=== PATIENT | female | born 1995 | race Caucasian/White ===

== ENCOUNTER 2016-06-17 15:02 | Emergency (ER) | payer OTHER ==
[2016-06-17 15:15] VITALS: BP 123/55
--- NOTE | 2016-06-17 15:38 | UC ---
Complaint Female HPI - HPI Summary HPI Summary: Pt presents with her significant other and young child. Pt is requesting an test. LMP was 05/16/16 and is now reporting that she has food cravings that are similar to when she was . Pt is not currently using any form control and is sexually active. - History Of Current Complaint Chief Complaint: UCGeneralIllness Stated Complaint: NEEDS PREG TEST Time Seen by Provider: 06/17/16 15:22 Hx Obtained From: Patient Hx Last Menstrual Period: 05/16/16 Character: Not Applicable Aggravating Factor(s): Nothing Associated Signs And Symptoms: Positive: Negative - Allergies/Home Medications Allergies/Adverse Reactions: Allergies Allergy/AdvReac Type Severity Reaction Status Date / Time Citalopram [From Celexa] Allergy Severe hives, mean Verified 06/17/16 15:15 Amoxicillin [From Augmentin] Allergy Intermediate Hives Verified 06/17/16 15:15 Clavulanic Acid Allergy Intermediate Hives Verified 06/17/16 15:15 [From Augmentin] Ibuprofen Allergy Intermediate Abdominal Verified 06/17/16 15:15 Pain NSAIDs Allergy Intermediate Hives Verified 06/17/16 15:15 Prochlorperazine Allergy Intermediate Hives Verified 06/17/16 15:15 [From Compazine] Home Medications: Home Medications Lisdexamfetamine(NF) [Vyvanse(NF)] 40 mg PO DAILY 06/17/16 [History Confirmed ] PMH/Surg Hx/FS Hx/Imm Hx Previously Healthy: Yes Endocrine History Of: Denies: Diabetes, Thyroid Disease, Hyperthyroidism, Hypothyroidism, Dyslipidemia Cardiovascular History Of: Denies: Cardiac Disorders, Hypertension, Pacemaker/ICD, Myocardial Infarction , Congestive Heart Failure, Atrial Fibrillation, Deep Vein Thrombosis, Bleeding Disorders Respiratory History Of: Reports: Asthma Denies: COPD, Bronchitis, Pneumonia, Pulmonary Embolism GI/ History Of: Reports: Gastroesophageal Reflux - She will take omeprazole. It is presently diet controlled. Denies: Ulcer, Gastrointestinal Bleed, Gall Bladder Disease, Kidney Stones, Diverticulitis, Renal Disease, Urosepsis Neurological History Of: Denies: TIA, CVA, Dementia, Seizures, Migraine Psychological History Of: Denies: Anxiety, Depression, Bipolar Disorder, Schizophrenia, Post Traumatic Stress Disorder Cancer History Of: Denies: Lung Cancer, Colorectal Cancer, Breast Cancer, Prostate Cancer, Cervical Cancer Other History Of: Negative For: HIV, Hepatitis B, Hepatitis C - Surgical History Surgical History: Yes Surgery Procedure, Year, and Place: T&A, bilateral ear surgery. - Family History Known Family History: Positive: Cardiac Disease, Hypertension - Social History Lives: With Family Alcohol Use: None Substance Use Type: None Smoking Status (MU): Never Smoked Tobacco - Immunization History Most Recent Influenza Vaccination: 0380-2978 Vaccination Up to Date: Yes Review of Systems Constitutional: Negative Skin: Negative Eyes: Negative ENT: Negative Respiratory: Negative Cardiovascular: Negative Gastrointestinal: Negative Genitourinary: Negative Motor: Negative Neurovascular: Negative Musculoskeletal: Negative Neurological: Negative Psychological: Negative All Other Systems Reviewed And Are Negative: Yes Physical Exam Triage Information Reviewed: Yes Appearance: Well-Appearing Vital Signs: Initial Vital Signs Temp 97.9 F 06/17/16 15:09 Pulse 78 06/17/16 15:09 Resp 18 06/17/16 15:09 BP 123/55 06/17/16 15:09 Pulse Ox 98 06/17/16 15:09 Vital Signs Reviewed: Yes Dental Exam: Normal Respiratory: Positive: No respiratory distress Musculoskeletal Exam: Normal Neurological Exam: Normal Psychological Exam: Normal Skin Exam: Normal Complaint Female Dx - Differential Dx/Diagnosis Differential Diagnosis/HQI/PQRI: Other - amenorrhea PICA Provider Diagnoses: normal exam. negative test Discharge - Discharge Plan Condition: Stable Disposition: HOME Patient Education Materials: Intrauterine Device (GEN), Normal Exam (ED) Referrals: Michael Osullivan MD [Primary Care Provider] - Additional Instructions: The test you have requested today gave a negative result. You should follow up with your PCP for further discussion for prevention/management. in your exam today we discussed many options including and IUD. I have provided more information regarding an IUD in your discharge instructions.
== END 2016-06-17 15:47 | disposition home or self-care (01) ==
LOC: UCCORT 15:02
DX: Z32.02 Encounter for pregnancy test, result negative (principal); Z88.1 Allergy status to other antibiotic agents; Z88.6 Allergy status to analgesic agent; Z88.0 Allergy status to penicillin
CPT/HCPCS: 81025; 99211; G0463

== ENCOUNTER 2017-02-07 17:51 | Emergency (ER) | payer OTHER ==
[2017-02-07 18:45] VITALS: BP 115/54
--- NOTE | 2017-02-07 18:57 | UC ---
Hand/Wrist HPI - HPI Summary HPI Summary: Pt presents with c/o of right thumb pain. Pt reports that she was picking up her young child and reports that right thumb base, lateral aspect, "popped" and has now been tender with movement . Pt is 22 weeks - History Of Current Complaint Stated Complaint: RIGHT THUMB PAIN Time Seen by Provider: 02/07/17 18:34 Hx Obtained From: Patient Hx Last Menstrual Period: 05/16/16 ?: Yes Onset/Duration: Sudden Onset, Lasting Days, Still Present Severity Initially: Mild Severity Currently: Mild Character Of Pain: Dull, Aching Aggravating Factor(s): Movement Alleviating: Rest Associated Signs And Symptoms: Positive: Negative - Allergies/Home Medications Allergies/Adverse Reactions: Allergies Allergy/AdvReac Type Severity Reaction Status Date / Time Citalopram [From Celexa] Allergy Severe hives, mean Verified 02/07/17 18:46 Amoxicillin [From Augmentin] Allergy Intermediate Hives Verified 02/07/17 18:46 Clavulanic Acid Allergy Intermediate Hives Verified 02/07/17 18:46 [From Augmentin] Ibuprofen Allergy Intermediate Abdominal Verified 02/07/17 18:46 Pain NSAIDs Allergy Intermediate Hives Verified 02/07/17 18:46 Prochlorperazine Allergy Intermediate Hives Verified 02/07/17 18:46 [From Compazine] Home Medications: Home Medications Vit W/ Docusate-Fe Fu [ 19] 1 tab PO DAILY 02/07/17 [History Confirmed 02/07/17] PMH/Surg Hx/FS Hx/Imm Hx Previously Healthy: Yes Other History Of: Negative For: HIV, Hepatitis B, Hepatitis C - Surgical History Surgical History: Yes Surgery Procedure, Year, and Place: T&A, bilateral ear surgery. x1 - Family History Known Family History: Positive: Cardiac Disease, Hypertension - Social History Occupation: Employed Full-time Lives: With Family Alcohol Use: None Substance Use Type: None Smoking Status (MU): Never Smoked Tobacco Have You Smoked in the Last Year: No - Immunization History Most Recent Influenza Vaccination: [id number] Vaccination Up to Date: Yes Review of Systems Constitutional: Negative Skin: Negative Eyes: Negative ENT: Negative Respiratory: Negative Cardiovascular: Negative Gastrointestinal: Negative Genitourinary: Negative Motor: Other - pain wiht ROM right thumb Neurovascular: Negative Musculoskeletal: Myalgia - right thumb Neurological: Negative Psychological: Negative All Other Systems Reviewed And Are Negative: Yes Physical Exam Triage Information Reviewed: Yes Appearance: Well-Appearing Vital Signs: Initial Vital Signs Temp 98.2 F 02/07/17 18:42 Pulse 73 02/07/17 18:42 Resp 14 02/07/17 18:42 BP 115/54 02/07/17 18:42 Pulse Ox 99 02/07/17 18:42 Vital Signs Reviewed: Yes Eye Exam: Normal ENT Exam: Normal Neck exam: Normal Respiratory Exam: Normal Cardiovascular Exam: Normal Musculoskeletal Exam: Normal Neurological Exam: Normal, Other - c/o tenderness with ROM right thumb Psychological Exam: Normal Skin Exam: Normal Hand/Wrist Course/Dx - Differential Dx/Diagnosis Differential Diagnosis/HQI/PQRI: Fracture, Sprain Provider Diagnoses: right thumb sprain Discharge - Discharge Plan Condition: Stable Disposition: HOME Patient Education Materials: Finger Sprain (ED) Referrals: Michael Osullivan MD [Primary Care Provider] - If Needed Additional Instructions: Please follow up with your PCP or return to clinic. Joe grubbs provided a referral to an orthopedic provider if your symptoms do not improve or worsen.
== END 2017-02-07 19:14 | disposition home or self-care (01) ==
LOC: UCCORT 17:51
DX: S63.601A Unspecified sprain of right thumb, initial encounter (principal); Z88.6 Allergy status to analgesic agent; Z88.3 Allergy status to other anti-infective agents; X50.9XXA Other and unspecified overexertion or strenuous movements or postures, initial encounter; Z3A.22 22 weeks gestation of pregnancy
CPT/HCPCS: 99211; G0463

== ENCOUNTER 2018-05-26 13:32 | Emergency (ER) | payer OTHER ==
--- OUTSIDE RECORDS SUMMARY | 2018-05-26 13:39 | XMS REPORT | Continuity of Care Document ---
:1995 External Reference #:[id number] Author Name Grisel Esquivel NP Address [address] [place] [address] Care Team Providers Name Role Phone Freddie Esquivel MD Care Team Information Internet Network Specialist Unavailable Payers Type Date Identification Numbers Payment Provider Subscriber Effective: 2014 Policy Number: [id number] [facility] [employer]ma [employer] Group Name: [id number] [address] PayID: [id number] [place] [address] Advance Directives Description No Information Available Problems Description No Information Family History Date Family Member(s) Problem(s) Comments Father Unknown First Son Good Health First Brother ADHD First Brother Bipolar Disorder Social History Type Date Description Comments Sex Unknown Tobacco Use Start: Unknown Never Smoked Cigarettes ETOH Use Denies alcohol use Tobacco Use Start: Unknown Patient has never smoked Recreational Drug Use Denies Drug Use Allergies, Adverse Reactions, Alerts Date Description Reaction Status Severity Comments 11/27/2016 Augmentin Active 11/27/2016 Compazine Active 11/27/2016 Bactrim Active 11/27/2016 Celexa Active 11/27/2016 Naproxen Active Medications Medication Date Status Form Strength Qnty SIG Indications Ordering Provider Calcium Carbonate 05/16 Active Chewtabs 500mg 60uni as Edin, Antacid ts directed MELINDA Recinos Cetirizine HCL 02/09 Active Chewtabs 10mg 30uni 1 po qd stanford Frazier MD Hydrocortisone 02/09 Active Cream 2.5% 20gm apply twice a MD Freddie day to affected areas Nasal 01/31 Active Tablets 30mg 120ta 2 every 6 , Decongestant bs hours MELINDA Recinos Acetaminophen 01/31 Active Solution 160mg/5ML 500ml 30ml every 4 hours as Grisel, needed [employer] Patient Is 01/24 Active elías- Sierra, 9 MELINDA Recinos Ondansetron HCL 01/24 Active Tablets 4mg 60tab 1-2 every s 12 hours Grisel, as needed [employer] Adult 01/12 Active Chewtabs 0.4-25mg 90uni 1 by mouth Sierra , Gummy/Dha/Folic ts every day Grisel, Acid patient [employer] would prefer gummies No Active 01/12 Hx Unknown Medications /2017 - 01/12 Fluconazole 12/13 Hx Tablets 150mg 2tabs 1 by mouth October repeat Grisel, - after 2 [employer] 01/12 days still symptomati c Cetirizine HCL 12/03 Hx Tablets 10mg 30tab 1 by mouth s at bedtime Grisel, - [employer] 01/12 Amphetamine-Dextr 11/26 Hx Caps ER 10mg 30cap 1 tab by F90.9 Sierra, oahet 24HR s mouth in Grisel, - the in the [employer] 11/26 Amphetamine-Dextr 11/26 Hx Caps ER 10mg 30cap 1 by mouth F90.9 Sierra, oamphet 24HR s every day Grisel, - [employer] 11/26 Amphetamine-Dextr 11/26 Hx Tablets 10mg 30tab 1 by mouth F90.9 Sierra, oamphetamine /2017 s every day Grisel, - [employer] 01/12 Amphetamine-Dextr 11/02 Hx Tablets 15mg 30tab 1 by mouth F90.9 Sierra oahetamine /2017 s every Grisel, - morning [employer] 11/26 Physical Therapy 10/13 Hx Misc evaluate S33.5xxA and treat MD Freddie - dx; low 01/12 back pain Omeprazole 10/[address] 40mg 30cap 1 by mouth K21.0 s every day MD Freddie - in the 01/12 evening Methylprednisolon 09/28 Hx TBPK 4mg 1Pack as S33.5xxA Jarrett, directed MD Freddie - 01/12 Cyclobenzaprine 09/28 Hx Tablets 5mg 45tab 1-2 by S33.5xxA Jarrett, HCL s mouth MD Freddie - every 8 08/08 hours as needed Azithromycin 09/13 Hx Tablets 250mg 6tabs 2 by mouth J02.9 Sierra, every day MD Freddie - x 1 day 01/12 then 1 by mouth every day x 4 days Amphetamine-Dextr 08/23 Hx Caps ER 10mg 30cap 1 tab by F90.9 Sierra, oamphet ER /2017 24HR s mouth in Grisel, - the in the [employer] 08/23 morning Amphetamine-Dextr 08/23 Hx Tablets 10mg 30tab 1 by mouth F90.9 Sierra, oamphetamine /2017 s every day Grisel, - [employer] 11/02 Phenazopyridine 08/20 Hx Tablets 200mg 9tabs 1 by mouth Sierra, HCL three Grisel, - times a [employer] Nitrofurantoin 08/20 Hx Capsules 100mg 14cap 1 by mouth Sierra Macrocrystal s twice a Grisel, - day [employer] 08/30 Vyvanse 08/20 Hx Capsules 10mg 14cap 1 by mouth F90.9 Sierra, s every day Grisel, - [employer] 08/23 Medroxyprogestero 07/07 Hx Suspension 150mg/ml 4Syri inject 1ml Sierra, ne Acetate nges intramuscu Grisel, - larly [employer] 01/12 every weeks--ple ase schedule appointmen t Ventolin HFA 07/06 Hx Aerosol 108(90Bas 2unit 2 puffs e) s every 4 Grisel, - mcg/Act hrs/prn [employer] 01/12 cough or wheezing Goodsense Cough 07/06 Hx Suer 30mg/5ML 148ml 10ml every J00 Sierra, DM 12hours Grisel, - [employer] 01/12 Fluoxetine HCL 06/30 Hx Capsules 20mg 30cap 1 by mouth F41.9 Sierra, (PMDD) s every day Grisel, - [employer] 07/13 Breast Pump 06/17 Hx Misc 1unit Electric Jarrett, s breast Grisel, - pump. Use [employer] 01/12 directed. Pt is returning to school. Nasal 05/06 Hx Tablets 30mg 60tab 2 tabs Sierra Decongestant s every 6 Grisel, - hours as [employer] 01/12 needed Acetaminophen 05/06 Hx Tablets 325mg 90tab 2 by mouth s every 6 Grisel, - hours as [employer] 01/12 needed Amoxicillin 04/22 Hx Tablets 500mg 20tab 1 by mouth s twice a Grisel, - day [employer] 05/06 Dexamethasone 04/22 Hx Solution 0.1% 5ml wick into [facility], Sodium ear drum Grisel, - using a [employer] 01/12 cottonball every 12 hours until symptom relief Lidocaine HCL 02/25 Hx Gel 2% 30ml apply to M25.511 affected Grisel, - area twice [employer] 01/12 a day Ondansetron 12/07 Hx Tablets 4mg 30tab 1 by mouth Dispers s every Grisel, - 12hours [employer] 01/12 Hydrocortisone 11/27 Hx Ointment 2.5% 28.35 apply to 0gm affected Grisel, - areas [employer] 01/12 twice a day Vitamins 11/27 Hx Tablets 28-0.8mg 30tab 1 by mouth s every day Grisel, - [employer] 01/12 Earwax Treatment 11/27 Hx Solution 6.5% 15ml 5-10 drops H61.23 Drops twice a Grisel, - day x 4 [employer] 01/12 days Fluticasone 11/18 Hx Suspension 50mcg/Act 1unit 2 sprays J30.1 s each nare Grisel, - every day [employer] 04/13 Escitalopram 00/ Hx Tablets 10mg 1 by mouth Unknown Oxalate /0000 every day - 06/30 Medications Administered in Office Medication Date Status Form Strength Qnty SIG Indications Ordering Provider Depo Medrol 80 Administered Injection MG Kalin Esquivel NP Immunizations CPT Code Status Date Vaccine Lot # [id number] Given 07/08/2015 Afluria Or Fluvirin Flu Vac Intramuscular 24074 Given 1995 Hepatitis B Vac Ped/Adolescent 3 Dose Schedule 35026 Refused 04/06/2018 Influenza Vac, 3 Yrs & Older, Quadrivalent, [place] Use [address] Refused 06/29/2017 Afluria Or Fluvirin Flu Vac Intramuscular Vital Signs Date Vital Result Comment 05/16/2018 11:48am Body Temperature 96.9 F Weight 196.00 lb Heart Rate 67 /min regular BP Systolic 122 mmHg BP Diastolic 60 mmHg Respiratory Rate 17 /min Height 65 inches 5'5" O2 % BldC Oximetry 98 % BMI (Body Mass Index) 32.6 kg/m2 04/06/2018 3:35pm Body Temperature 97.6 F Weight 188.00 lb Heart Rate 66 /min Respiratory Rate 17 /min Height 65 inches 5'5" BMI (Body Mass Index) 31.3 kg/m2 02/18/2018 12:14pm Body Temperature 97.8 F Weight 189.00 lb Heart Rate 78 /min BP Systolic 128 mmHg BP Diastolic 74 mmHg Respiratory Rate 17 /min Height 68 inches 5'8" BMI (Body Mass Index) 28.7 kg/m2 02/09/2018 12:35pm Body Temperature 98.0 F Weight 189.00 lb Heart Rate 63 /min BP Systolic 124 mmHg BP Diastolic 70 mmHg Respiratory Rate 17 /min O2 % BldC Oximetry 99 % 01/31/2018 4:31pm Body Temperature 99.5 F Weight 185.00 lb 01/24/2018 12:56pm Weight 189.00 lb BP Systolic 99 mmHg BP Diastolic 70 mmHg 01/12/2018 2:15pm Weight 188.00 lb BP Systolic 124 mmHg BP Diastolic 78 mmHg 12/10/2017 2:37pm Body Temperature 98.4 F Weight 186.00 lb BP Systolic 114 mmHg BP Diastolic 78 mmHg Height 98.05 inches 8'2.05" BMI (Body Mass Index) 13.6 kg/m2 Urine Dipstick - Blood NEGATIVE Urine Dipstick - Protein NEGATIVE Urine Dipstick - Glucose NEGATIVE Urine Dipstick - Leukocytes NEGATIVE 11/26/2017 2:35pm Weight 190.00 lb BP Systolic 120 mmHg BP Diastolic 80 mmHg Height 98.05 inches 8'2.05" BMI (Body Mass Index) 13.9 kg/m2 10/13/2017 12:21pm Weight 187.00 lb BP Systolic 122 mmHg BP Diastolic 74 mmHg Height 98.05 inches 8'2.05" BMI (Body Mass Index) 13.7 kg/m2 10/08/2017 2:55pm Weight 188.00 lb BP Systolic 120 mmHg BP Diastolic 68 mmHg Height 98.05 inches 8'2.05" BMI (Body Mass Index) 13.7 kg/m2 10/08/2017 2:40pm Weight 186.00 lb BP Systolic 98 mmHg BP Diastolic 60 mmHg Height 98.05 inches 8'2.05" BMI (Body Mass Index) 13.6 kg/m2 09/28/2017 9:31am Weight 186.00 lb BP Systolic 100 mmHg BP Diastolic 60 mmHg Height 98.05 inches 8'2.05" BMI (Body Mass Index) 13.6 kg/m2 09/20/2017 11:50am Body Temperature 97.8 F Weight 186.00 lb BP Systolic 110 mmHg BP Diastolic 62 mmHg Height 98.05 inches 8'2.05" BMI (Body Mass Index) 13.6 kg/m2 Urine Dipstick - Blood 3+ Urine Dipstick - Protein NEGATIVE Urine Dipstick - Glucose NEGATIVE Urine Dipstick - Leukocytes 309/13/2017 12:02pm Body Temperature 98.0 F Weight 185.00 lb BP Systolic 118 mmHg BP Diastolic 70 mmHg Height 98.05 inches 8'2.05" BMI (Body Mass Index) 13.5 kg/m2 08/30/2017 12:16pm Weight 184.00 lb BP Systolic 124 mmHg BP Diastolic 78 mmHg Height 62.25 inches 5'2.25" BMI (Body Mass Index) 33.4 kg/m2 08/20/2017 2:26pm Body Temperature 98.4 F Weight 184.00 lb BP Systolic 102 mmHg BP Diastolic 60 mmHg Height 62.25 inches 5'2.25" BMI (Body Mass Index) 33.4 kg/m2 Urine Dipstick - Blood 3+ Urine Dipstick - Protein NEGATIVE Urine Dipstick - Glucose NEGATIVE Urine Dipstick - Leukocytes 307/13/2017 3:06pm Weight 197.00 lb BP Systolic 122 mmHg BP Diastolic 74 mmHg Height 62.25 inches 5'2.25" BMI (Body Mass Index) 35.7 kg/m2 07/07/2017 2:52pm Weight 200.00 lb BP Systolic 124 mmHg BP Diastolic 74 mmHg Height 62.25 inches 5'2.25" BMI (Body Mass Index) 36.3 kg/m2 07/06/2017 11:39am Body Temperature 97.4 F Weight 198.00 lb BP Systolic 120 mmHg BP Diastolic 72 mmHg Height 62.25 inches 5'2.25" BMI (Body Mass Index) 35.9 kg/m2 06/30/2017 2:00pm Body Temperature 96.7 F Weight 197.00 lb BP Systolic 110 mmHg BP Diastolic 68 mmHg Height 65.25 inches 5'5.25" BMI (Body Mass Index) 32.5 kg/m2 05/06/2017 11:17am Weight 227.00 lb BP Systolic 124 mmHg BP Diastolic 86 mmHg Height 65.25 inches 5'5.25" BMI (Body Mass Index) 37.5 kg/m2 04/22/2017 2:20pm Weight 227.00 lb BP Systolic 118 mmHg BP Diastolic 74 mmHg Height 65.25 inches 5'5.25" BMI (Body Mass Index) 37.5 kg/m2 04/13/2017 10:40am Weight 224.00 lb BP Systolic 110 mmHg BP Diastolic 74 mmHg Height 65.25 inches 5'5.25" BMI (Body Mass Index) 37.0 kg/m2 02/25/2017 11:39am Weight 214.00 lb BP Systolic 120 mmHg BP Diastolic 82 mmHg Height 65.25 inches 5'5.25" BMI (Body Mass Index) 35.3 kg/m2 01/14/2017 3:58pm Weight 211.00 lb BP Systolic 120 mmHg BP Diastolic 78 mmHg Height 65.25 inches 5'5.25" BMI (Body Mass Index) 34.8 kg/m2 12/07/2016 10:11am Weight 207.00 lb BP Systolic 114 mmHg BP Diastolic 70 mmHg Height 65.25 inches 5'5.25" BMI (Body Mass Index) 34.2 kg/m2 11/27/2016 2:39pm Weight 208.00 lb Heart Rate 60 /min BP Systolic 124 mmHg BP Diastolic 76 mmHg Height 65.25 inches 5'5.25" BMI (Body Mass Index) 34.3 kg/m2 Urine Dipstick - Blood NEGATIVE Urine Dipstick - Protein TRACE Urine Dipstick - Glucose NEGATIVE Urine Dipstick - Leukocytes 3+ Right Visual Acuity Distance 20/20 Left Visual Acuity Distance 20/25 11/18/2016 11:28am Weight 210.00 lb BP Systolic 102 mmHg BP Diastolic 60 mmHg BP Systolic Recheck 98 mmHg p58 BP Diastolic Recheck 50 mmHg p58 BP Systolic Lying Down 110 mmHg p64 BP Diastolic Lying Down 72 mmHg p64 BP Systolic Sitting 108 mmHg p80 BP Diastolic Sitting 72 mmHg p80 Height 67.0 inches 5'7" BMI (Body Mass Index) 32.9 kg/m2 Glucose Meter 86 fasting Results Test Date Facility Test Result H/L Range Note Laboratory test [facility] Throat Culture Microbiology res 1 finding 8 <SEE NOTE> Laboratory test [facility] HCG,Quant Preg 1968 mU/mL 2 finding 8 Laboratory test [facility] Glucose 91 mg/dL 70-105 finding 8 Affirm [facility] Trichomonas Negative Negative 8 Vaginalis Gardnerella Vaginalis Negative Negative Lyn Species Positive Abnormal Negative Laboratory test 09/20/2017 [facility] Urine Culture Microbiology res 3, 4 finding <SEE NOTE> Laboratory test 09/13/2017 [facility] Throat Culture Microbiology res 5 finding <SEE NOTE> Laboratory test 08/20/2017 [facility] Urine Culture Microbiology res 6 finding <SEE NOTE> Laboratory test 07/06/2017 [facility] Throat Culture Microbiology res 7 finding <SEE NOTE> Laboratory test 05/06/2017 [facility] Throat Culture Microbiology res 8 finding <SEE NOTE> Hemoglobin A1c 04/09/2017 [facility] Hemoglobin A1c 5.0 % 4.1-5.9 9 Estimated Average Glucose Calc 97 71-140 Laboratory test 04/09/2017 [facility] Platelet Count 224 K/ul 140-400 finding Laboratory test 02/23/2017 [facility] Glucose Challenge 45 mg/dL (<140) 10 , 11 finding Test CBC With Auto Diff 02/23/2017 [facility] WBC 8.7 K/uL 4.1-11.0 RBC 4.06 M/uL 4.00-5.40 Hemoglobin 12.4 gm/dL 12.0-16.0 Hematocrit 36.9 % 36.0-47.0 MCV 91.0 fL 80.0-97.0 MCH 30.6 pg 27.0-32.0 MCHC 33.6 g/dL 32.0-36.0 RDW 14.2 % 11.5-14.5 PLT Count 208 K/ul 140-400 Neutrophil 68.8 % 35.0-75.0 Lymphocyte 27.0 % 16.0-52.0 Monocyte 3.7 % 2.0-10.0 Eosinophil 0.3 % 0.0-5.0 Basophil 0.2 % 0.0-4.0 Abs Neutrophils 6.0 K/uL 2.1-8.0 Abs Lymphocytes 2.3 K/uL 0.8-5.5 Abs Monocytes 0.3 K/uL 0.1-1.0 Abs Eosinophils 0.0 K/uL 0.0-0.5 Abs Basophils 0.0 K/uL 0.0-0.3 Laboratory test 02/23/2017 [place] Platelet Count 208 K/ul 140-400 finding HSV1/HSV2 Glyco G 12/14/2016 [facility] HSV1 Glyco G Igg @ POSITIVE (Neg) 12, 13 Igg-RL HSV2 Glyco G Igg @ POSITIVE (Neg) 14 Laboratory test finding 12/14/2016 [place] Glucose Challenge Test 79 mg/dL (<140) 15 Vit D,25 Hydroxy 34 ng/mL 31-100 TSH 1.00 uIU/mL 0.35-4.94 HIV Combo By 12/07/2016 [place] [facility] [employer] HIV Combo NON REACTIVE Non Reactive Eia Lipid 12/07/2016 [place] [facility] Cholesterol 158 mg/dL 50-199 Triglycerides 112 mg/dL 30-200 HDL 48 mg/dL 35-85 16 Chol/ HDL Ratio 3.3 ratio Low 3.7-5.6 VLDL 22 mg/dL 2-29 LDL (Calc) 88 mg/dL 20-99 17 Urinalysis 10/06/2016 [facility] General Color YELLOW Appearance CLEAR Spec Grav Urine 1.029 (1.003-1.030) PH Urine 6.0 (5.0-7.5) Leuk Esterase NEGATIVE (Neg) Nitrite Urine NEGATIVE (Neg) Protein Urine NEGATIVE (Neg) Glucose Urine NEGATIVE (Neg) Ketone Urine TRACE Abnormal (Neg) Urobilinogen 1.0 mg/dL (0-1.0) Bilirubin Urine NEGATIVE (Neg) Blood/HGB Urine NEGATIVE (Neg) Laboratory test 10/06/2016 [facility] General Type And SPEC EXP DATE 18 finding Screen <SEE NOTE> Poc Chem 8 10/06/2016 [facility] Poc Sodium 143 mmol/L (136-14 5) Poc Potassium 3.7 mmol/L (3.6-5.2) Poc Chloride 105 mmol/L (100-108) Poc Co2 25 mmol/L (22-31) Poc Anion Gap 13 mmol/L (7-16) Poc Ionized Calcium 1.24 mmol/L (1.16-1.32) 19 Poc Glu 84 mg/dL (70-99) Poc BUN 12 mg/dL (7-24) Poc Creatinine 0.7 mg/dL (0.6-1.0) 20 Poc HCT 43 % (38-47) Poc HGB 14.6 g/dL (12.0-16.0) Poc [facility] 10/06/2016 [facility] 917 IU/L High (<5 ) 21 Laboratory test 08/11/2016 [facility] Urine Culture SPECIMEN 22 finding DESCRIP <SEE NOTE> Urine Micro Only 08/11/2016 [facility] Urine WBC 3-5 [HPF] (0-5) Urine RBC 0-2 [HPF] (0-2) Epithelial Cells 3+ [HPF] Bacteria 3+ [HPF] Laboratory test finding 08/11/2016 [facility] Urine HCG NEGATIVE (Neg) Urinalysis 08/11/2016 [facility] Color YELLOW Appearance CLOUDY Spec Grav Urine 1.023 (1.003-1.030) PH Urine 6.0 (5.0-7.5) Leuk Esterase 1+ Abnormal (Neg) Nitrite Urine NEGATIVE (Neg) Protein Urine NEGATIVE (Neg) Glucose Urine NEGATIVE (Neg) Ketone Urine NEGATIVE (Neg) Urobilinogen 0.2 mg/dL (0-1.0) Bilirubin Urine NEGATIVE (Neg) Blood/HGB Urine NEGATIVE (Neg) 1 Microbiology results RESULT Normal throat juan jose.No beta hemolytic streptococci isolated. 2 INTERPRETATION: LESS THAN 6 NEGATIVE 6 - 10 BORDERLINE (SUGGEST REPEAT IN 48 HOURS) APPROX HCG RANGE WEEKS POST LMP 11 - 130 3 - 4 WEEKS 75 - 2600 4 - 5 WEEKS 850 - 44488 5 - 6 WEEKS 4000 - 144737 6 - 7 WEEKS 69686 - 820644 7 - 12 WEEKS 92792 - 849976 12 - 16 WEEKS 1400 - 90166 16 - 29 WEEKS 940 - 76773 29 - 41 WEEKS Unless otherwise specified, testing performed by [facility] [address] [place] [id number] 3 HIV COMBO TO BE PERFORMED AT [facility]. RESULTS TO FOLLOW 4 Microbiology results SOURCE Clean Catch Midstream FINAL RESULT No growth 5 Microbiology results RESULT Normal throat juan jose.No beta hemolytic streptococci isolated. 6 Microbiology results SOURCE Clean Catch Midstream FINAL RESULT Mixed urogenital juan jose consistent with contamination. Request fresh specimen if indicated. 7 Microbiology results RESULT Normal throat juan jose.No beta hemolytic streptococci isolated. 8 Microbiology results RESULT Normal throat juan jose.No beta hemolytic streptococci isolated. 9 Juliana Menezes MD PLEASE SEND COPY OF RESULTS TO: 10 Thank you! Juliana Menezes MD Please send copy of results to: This sample is drawn by:[facility] 11 LITERATURE SUGGESTS RESULTS <140 MG/DL IN A FEMALE RULE OUT GESTATIONAL DIABETES. PATIENTS WITH RESULTS > HH=546 MAY NEED A GLUCOSE TOLERANCE TEST FOLLOW UP. NO REFERENCE RANGE FOR NON- PATIENTS. Unless otherwise specified, testing [email or web address] [address] [address] Please send results to Dr Arzola 13 PLEASE NOTE: Individuals infected with HSV may not exhibit detectable IgG antibody to glycoprotein G in the early stages of infection and 5-10% of infections may occur with glycoprotein G deficient virus. Detection of antibody presence in these cases may only be possible using a non-type specific screening test. NOTE: HSV serology cannot be interpreted in infants less than 60 days old. NEW QUALITATIVE METHOD IN USE 02/10/12 14 PLEASE NOTE: Individuals infected with HSV may not exhibit detectable IgG antibody to glycoprotein G in the early stages of infection and 5-10% of infections may occur with glycoprotein G deficient virus. Detection of antibody presence in these cases may only be possible using a non-type specific screening test. NOTE: HSV serology cannot be interpreted in infants less than 60 days old. NEW QUALITATIVE METHOD IN USE 02/10/12 Unless otherwise specified, testing [email or web address] [address] 15 LITERATURE SUGGESTS RESULTS <140 MG/DL IN A FEMALE RULE OUT GESTATIONAL DIABETES. PATIENTS WITH RESULTS > OI=277 MAY NEED A GLUCOSE TOLERANCE TEST FOLLOW UP. NO REFERENCE RANGE FOR NON- PATIENTS. Unless otherwise specified, testing [email or web address] [address] 16 Per NCEP ATP III Guidelines: Results lower than 40 mg/dL are suggestive of increased risk for coronary artery disease. Results > or=to 60 mg/dL are considered a negative risk factor. 17 Per NCEP ATP III Guidelines: Normal Population <130 Patients with medical conditions: CHD/DM Optimal: <100 Borderline high: 130-159 High: 160-189 Very high: >189 18 SPEC EXP DATE 10/09/2016 PATIENT ABO/Rh O POSITIVE ANTIBODY SCREEN NEGATIVE TESTING SITE PERFORMED AT [place] [address] 19 RESULT IS NOT NORMALIZED TO 7.40 20 PERFORMED BY [facility] 21 LEVELS BETWEEN 5 AND 25 IU/L MAY INDICATE EARLY AND SHOULD BE REPEATED AFTER 48 HRS. PERFORMED BY [facility] 22 SPECIMEN DESCRIPTION MIDSTREAM URINE,CLEAN CATCH CULTURE RESULTS MIXED UROGENITAL JUAN JOSE; PLEASE SUBMIT A NEW SPEC IMEN IF CLINICALLY INDICATED. REPORT STATUS FINAL 08/12/2016 Procedures Date Code Description Status 11/26/2017 84974 Admin Of Inj (Therapeutic Phrophylactic Or Diagnostic Subq Completed Inj 07/06/2017 52436 Remove Impact Cerumen Irrigation/Lavage Completed 11/27/2016 26026 Screening Hearing Test Completed Encounters Type Date Location Provider Dx Diagnosis Office Visit 04/06/2018 Grisel Escoto, S60.551A Superficial foreign 3:15p [employer] body of RIGHT hand, initial encounter Z68.31 Body mass index (BMI) 31.0-31.9, adult Office Visit 02/18/2018 12:00p Grisel Escoto, MELINDA M79.672 Pain in LEFT foot O00.01 Abdominal with intrauterine N93.9 Abnormal uterine and vaginal bleeding, unspecified Z68.28 Body mass index (BMI) 28.0-28.9, adult Office Visit 02/09/2018 12:45p Freddie Escoto, S40.861A Insect bite MD (nonvenomous) of RIGHT upper arm, init encntr Office Visit 01/31/2018 4:15p Grisel Escoto, J02.9 Acute pharyngitis, [employer] unspecified Office Visit 01/24/2018 12:30p Grisel Escoto, O00.01 Abdominal [employer] with intrauterine E86.0 Dehydration Office Visit 01/12/2018 2:15p Grisel Escoto, O00.01 Abdominal [employer] with intrauterine Office Visit 12/10/2017 2:15p Grisel Escoto, N76.0 Acute vaginitis [employer] Z68.1 Body mass index (BMI) 19.9 or less, adult Office Visit 11/26/2017 2:45p Grisel Escoto NP L23.9 Allergic contact dermatitis, unspecified cause Z68.1 Body mass index (BMI) 19.9 or less, adult Office Visit 11/02/2017 2:45p Renetta Esquivel F90.9 Attention-deficit MELINDA Recinos hyperactivity disorder, unspecified type Office Visit 10/13/2017 12:30p Freddie Escoto, S33.5xxA Sprain of ligaments of MD lumbar spine, initial encounter Z68.1 Body mass index (BMI) 19.9 or less, adult Office Visit 10/08/2017 2:30p Freddie Escoto, K21.0 Gastro- esophageal reflux MD disease with esophagitis S33.5xxA Sprain of ligaments of lumbar spine, initial encounter Z68.1 Body mass index (BMI) 19.9 or less, adult Office Visit 09/28/2017 9:15a Freddie Escoto MD S33.5xxA Sprain of ligaments of lumbar spine, initial encounter F90.9 Attention-deficit hyperactivity disorder, unspecified type Z68.1 Body mass index (BMI) 19.9 or less, adult Office Visit 09/20/2017 12:15p Freddie Escoto MD R82.99 Other abnormal findings in urine J06.9 Acute upper respiratory infection, unspecified Office Visit 09/13/2017 11:45a Freddie Escoto MD J02.9 Acute pharyngitis, unspecified Z68.1 Body mass index (BMI) 19.9 or less, adult Office Visit 08/30/2017 12:00p Grisel Escoto NP L23.9 Allergic contact dermatitis, unspecified cause Office Visit 08/20/2017 2:30p Grisel Escoto NP R10.9 Unspecified abdominal pain F90.9 Attention-deficit hyperactivity disorder, unspecified type Office Visit 07/13/2017 2:45p Grisel Escoto, F41.9 Anxiety disorder, [employer] unspecified Office Visit 07/07/2017 3:15p Grisel Escoto, Z30.8 Encounter for other [employer] contraceptive management Office Visit 07/06/2017 11:30a Grisel Escoto, J00 Acute nasopharyngitis [employer] [common cold] H61.21 Impacted cerumen, RIGHT ear Office Visit 06/30/2017 1:45p Grisel Escoto, F41.9 Anxiety disorder, [employer] unspecified Office Visit 05/06/2017 11:00a Grisel Escoto, W01.10xA Fall same lev from [employer] slip/trip w strike agnst unsp obj, init J02.9 Acute pharyngitis, unspecified Office Visit 04/22/2017 2:00p Grisel Escoto, H65.03 Acute serous otitis [employer] media, bilateral Office Visit 04/13/2017 10:30a Grisel Escoto, K21.9 Gastro- esophageal [employer] reflux disease without esophagitis H65.03 Acute serous otitis media, bilateral Office Visit 02/25/2017 11:15a Grisel Escoto, M25.511 Pain in RIGHT [employer] shoulder Office Visit 01/14/2017 3:45p Grisel Escoto, J30.9 Allergic rhinitis, [employer] unspecified Office Visit 12/07/2016 9:30a Grisel Escoto, Z13.220 Encounter for [employer] screening for lipoid disorders Z11.4 Encounter for screening for human immunodeficiency virus H61.23 Impacted cerumen, bilateral H65.113 Acute and subacute allergic otitis media (serous), bi Office Visit 11/27/2016 2:30p Grisel Escoto, [employer] Z00.00 Encntr for general adult medical exam w/o abnormal findings H61.23 Impacted cerumen, bilateral Office Visit 11/18/2016 11:30a Freddie Escoto MD Z33.3 state, gestational carrier J30.1 Allergic rhinitis due to pollen R42 Dizziness and giddiness O21.0 Mild hyperemesis gravidarum Plan of Treatment 05/16/2018 - Grisel Esquivel, NPR12 HeartburnComments:gave pat edu for heartburn and tumsZ68.32 Body mass index (BMI) 32.0-32.9, adultAllNew Medication :Calcium Carbonate Antacid 500 mg - as directed
[2018-05-26 13:43] VITALS: BP 107/59
--- NOTE | 2018-05-26 14:05 | UC ---
Ear Complaint HPI - HPI Summary HPI Summary: 22-year-old female who is 24 weeks presents with 2 day history of bilateral ear pain and fullness. She is also reporting some mild lower abdominal cramping. States she was evaluated by her OB on 05/23/2018 for the abdominal cramping. She states they performed a urinalysis which was normal. She has continued to feel movement. . Denies fever, chills, nasal congestion, sinus pressure, sore throat, cough, chest pain, shortness of breath , nausea, vomiting, diarrhea, dysuria, urgency, hematuria, vaginal bleeding, or vaginal discharge. - History of Current Complaint Chief Complaint: UCEar Stated Complaint: BI LAT EAR PAIN,STOMACH PAIN Time Seen by Provider: 05/26/18 13:36 Hx Obtained From: Patient Hx Last Menstrual Period: 05/16/16 Pain Intensity: 6 - Allergies/Home Medications Allergies/Adverse Reactions: Allergies Allergy/AdvReac Type Severity Reaction Status Date / Time amoxicillin Allergy Intermediate Hives Verified 05/26/18 13:47 citalopram [From Celexa] Allergy Intermediate hives, Verified 05/26/18 13:47 mean demeaner ibuprofen Allergy Intermediate Hives Verified 05/26/18 13:47 NSAIDS (Non-Steroidal Allergy Intermediate Hives Verified 05/26/18 13:47 Anti-Inflamma prochlorperazine Allergy Intermediate Hives Verified 05/26/18 13:47 [From Compazine] PMH/Surg Hx/FS Hx/Imm Hx Previously Healthy: Yes - Denies significant PMH Other History Of: Negative For: HIV, Hepatitis B, Hepatitis C - Surgical History Surgical History: Yes Surgery Procedure, Year, and Place: T&A, bilateral ear surgery. x 2 - Family History Known Family History: Positive: Cardiac Disease, Hypertension - Social History Occupation: Unemployed Lives: With Family Alcohol Use: None Substance Use Type: None Smoking Status (MU): Never Smoked Tobacco Have You Smoked in the Last Year: No - Immunization History Most Recent Influenza Vaccination: [id number] Vaccination Up to Date: Yes Review of Systems All Other Systems Reviewed And Are Negative: Yes Constitutional: Negative: Fever, Chills Eyes: Negative: Drainage, Eye Redness ENT: Positive: Ear Ache. Negative: Sore Throat, Nasal Discharge, Sinus Congestion, Sinus Pain/Tenderness Respiratory: Negative: Shortness Of Breath, Cough Cardiovascular: Negative: Palpitations, Chest Pain Gastrointestinal: Positive: Other - See HPI. Negative: Vomiting, Diarrhea, Nausea Genitourinary: Negative: Dysuria, Hematuria, Urgency, Vaginal/Penile Discharge, Abnormal Bleeding Is Patient Immunocompromised?: No Physical Exam - Summary Physical Exam Summary: GENERAL APPEARANCE: Well developed, well nourished, alert and cooperative, and appears to be in no acute distress. EYES: Conjunctiva clear. No discharge. Vision is grossly intact. EARS: External auditory canals with cerumen impaction bilaterally. TMs not visualized. NOSE: No nasal discharge. THROAT: Oral cavity and pharynx normal. No inflammation, swelling, exudate, or lesions. Teeth and gingiva in good general condition. NECK: Neck supple, non-tender without lymphadenopathy. CARDIAC: Normal S1 and S2. No S3, S4 or murmurs. Rhythm is regular. There is no peripheral edema, cyanosis or pallor. Extremities are warm and well perfused. Capillary refill is less than 2 seconds. LUNGS: Clear to auscultation and percussion without rales, rhonchi, wheezing or diminished breath sounds. ABDOMEN: Positive bowel sounds. Soft, nondistended, nontender. No guarding or rebound. No masses or hepatosplenomegally. Fundus palpable approximately 4 cm above the umbilicus. SKIN: Skin normal color, texture and turgor with no lesions or eruptions. Triage Information Reviewed: Yes Vital Signs: Initial Vital Signs Temp 98.6 F 05/26/18 13:41 Pulse 73 05/26/18 13:41 Resp 20 05/26/18 13:41 BP 107/59 05/26/18 13:41 Pulse Ox 100 05/26/18 13:41 Vital Signs Reviewed: Yes Re-Evaluation - Re-Evaluation First Eval Re-Evaluation Time: 14:22 Change: Improved - Right ear was irrigated by RN and cerumen removed. Patient complained of some discomfort so irrigation was stopped and she declined to have the left ear irrigated. She does report improved hearing in right ear and fullness subsided. Post-irrigation the right TM was intact, opaque with good cone of light. No erythema noted. Left TM is still obscured by cerumen. Ear Complaint Course/Dx - Course Course Of Treatment: 22-year-old female who is 24 weeks presents with 2 day history of bilateral ear pain and fullness. She is also reporting some mild lower abdominal cramping. States she was evaluated by her OB on 2017 for the abdominal cramping. She states they performed a urinalysis which was normal. She has continued to feel movement. . Denies fever, chills, nasal congestion, sinus pressure, sore throat, cough, chest pain, shortness of breath, nausea, vomiting, diarrhea, dysuria, urgency, hematuria, vaginal bleeding, or vaginal discharge. Afebrile. VSS. Exam revealed bilateral cerumen impaction but otherwise unremarkable. Right ear was irrigated by RN and cerumen removed. Patient complained of some discomfort so irrigation was stopped and she declined to have the left ear irrigated. She does report improved hearing in right ear and fullness subsided. Post-irrigation the right TM was intact, opaque with good cone of light. No erythema noted. Left TM is still obscured by cerumen. Recommed she use an OTC cerumenlytic to see if her symptoms improve. Since she was evaluated by her OB for the abdominal cramping, had a normal UA, and denies any vaginal bleeding she is to follow up with her OB as scheduled. She is follow up with her PCP if her ear symptoms persist despite using home treatment. Warning symptoms were reviewed. Verbalizes understanding and agrees with POC. - Differential Dx/Diagnosis Differential Diagnosis/HQI/PQRI: Otitis Externa, Otitis Media Provider Diagnosis: Impacted cerumen of both ears, Abdominal cramping, Intrauterine Discharge - Sign-Out/Discharge Documenting (check all that apply): Patient Departure All imaging exams completed and their final reports reviewed: No Studies - Discharge Plan Condition: Stable Disposition: HOME Patient Education Materials: Cerumen Impaction (ED) Referrals: Delta Esquivel NP [Primary Care Provider] - 7 Days (If symptoms persist.) Additional Instructions: Your exam revealed excessive ear wax in both ears but no evidence of infection. We were able to clear the wax from your right ear but you have chosen not to have us flush the wax out of the left ear. I would recommend using an [id number] ear wax removal kit such Cerumenex or Debrox to help remove the wax from the left ear. Follow up with your primary care provider in 7 days if symptoms persist. Follow up with OB as scheduled. Seek immediate medical attention in the emergency room if you have fever greater than 100.5 F, have drainage or blood from the ear, loss of hearing, severe abdominal pain, vaginal bleeding or discharge, or any worsening of symptoms. - Billing Disposition and Condition Condition: STABLE Disposition: Home
== END 2018-05-26 14:43 | disposition home or self-care (01) ==
LOC: UCCORT 13:32
DX: H61.23 Impacted cerumen, bilateral (principal); R10.9 Unspecified abdominal pain; O26.892 Other specified pregnancy related conditions, second trimester; Z3A.24 24 weeks gestation of pregnancy; Z88.1 Allergy status to other antibiotic agents; Z88.6 Allergy status to analgesic agent; Z88.8 Allergy status to other drugs, medicaments and biological substances
CPT/HCPCS: 99212; G0463